=== PATIENT | male | born 1965 | race Native Hawaiian/Other Pacific Islander ===

== ENCOUNTER 2018-05-14 10:08 | Emergency (ER) | payer OTHER ==
[~2018-05-14] VITALS: Ht 177.8 cm; Wt 59.0 kg
[2018-05-14 10:07] VITALS: TEMP 97.2
[2018-05-14 10:31] LABS: PLATELET COUNT 518 K/uL (142-355)
[2018-05-14 10:39] LABS: POTASSIUM 4.2 mmol/L (3.6-5.2); SODIUM 138 mmol/L (136-145)
[2018-05-14 13:10] VITALS: BP 128/87
== END 2018-05-14 13:10 | disposition home or self-care (01) ==
LOC: ED 10:08
PROVIDERS: Family Medicine
DX: T67.5XXA Heat exhaustion, unspecified, initial encounter (principal); E86.0 Dehydration; R00.1 Bradycardia, unspecified; Y93.89 Activity, other specified; Y92.69 Other specified industrial and construction area as the place of occurrence of the external cause
CPT/HCPCS: 36415; 80053; 84484; 85027; 93005; 96361; 96374; 99284; J2405